=== PATIENT | female | born 1950 | race Caucasian/White ===

== ENCOUNTER 2017-03-12 07:11 | Outpatient (CLI) | payer OTHER ==
[~2017-03-12 07:11] MED LIST: AMARYL PO; ATORVASTATIN CA20 MG; ATORVASTATIN PO; GILTUSS TR TAB1 EACH PO; GLIPIZIDE ER2.5 MG PO; GLUMETZA1000 MG PO; JANUMET 50-1,1 UDTAB; JANUMET XR 50-1 EAC1 PO; MEDROLPACK PO; SYNTHROID75 MCG PO; VOLTAREM 50 MG PO; ZETIA10 MG PO; ZITHROMAX500 MG PO; ZYRTEC10 M3 PO; ZYRTEC10 MG PO
== END 2017-03-12 07:27 | disposition home or self-care (01) ==
LOC: LAB 07:11
DX: E03.8 Other specified hypothyroidism (principal); E11.65 Type 2 diabetes mellitus with hyperglycemia; E78.2 Mixed hyperlipidemia; I10 Essential (primary) hypertension

== ENCOUNTER 2017-08-05 16:02 | Emergency (ER) | payer OTHER ==
[~2017-08-05] VITALS: Ht 149.9 cm; Wt 50.8 kg
[2017-08-05] MEDS ORDERED: SKELAXIN800 MG PO (17:04)
[2017-08-05] MEDS ORDERED: CELEBREX100 MG PO (17:04)
== END 2017-08-05 17:51 | disposition home or self-care (01) ==
LOC: ER 16:02
DX: M54.5 Low back pain (principal)

== ENCOUNTER → 2017-09-09 | Outpatient (CLI) | payer OTHER ==
[~2017-09-09] MED LIST changes: +CELEBREX100 MG PO; +SKELAXIN800 MG PO
== END | disposition home or self-care (01) ==
LOC: NUCLEAR 07:00
DX: I20.0 Unstable angina (principal); I50.42 Chronic combined systolic (congestive) and diastolic (congestive) heart failure
CPT/HCPCS: J0153; A9500; 93017; 78452

== ENCOUNTER → 2017-11-25 07:07 | Outpatient (CLI) | payer OTHER | END | disposition home or self-care (01) | LOC: LAB 07:07 | DX: E03.8 Other specified hypothyroidism (principal); E78.2 Mixed hyperlipidemia; I10 Essential (primary) hypertension; D64.89 Other specified anemias; N39.0 Urinary tract infection, site not specified; R10.84 Generalized abdominal pain; E78.4 Other hyperlipidemia; E55.9 Vitamin D deficiency, unspecified; R80.8 Other proteinuria; R73.09 Other abnormal glucose; E11.8 Type 2 diabetes mellitus with unspecified complications; I11.9 Hypertensive heart disease without heart failure; I50.42 Chronic combined systolic (congestive) and diastolic (congestive) heart failure ==

== ENCOUNTER 2018-04-17 08:21 | Outpatient (CLI) | payer OTHER | END 2018-04-17 08:34 | disposition home or self-care (01) | LOC: LAB 08:21 | DX: E78.2 Mixed hyperlipidemia (principal); E03.8 Other specified hypothyroidism; E11.65 Type 2 diabetes mellitus with hyperglycemia; I10 Essential (primary) hypertension ==

== ENCOUNTER 2018-04-17 10:29 | Outpatient (CLI) | payer OTHER | END 2018-04-17 10:32 | disposition home or self-care (01) | LOC: SONOGRAMA 10:29 | DX: R31.9 Hematuria, unspecified (principal) ==

== ENCOUNTER 2018-05-28 06:42 | Emergency (ER) | payer OTHER ==
[~2018-05-28] VITALS: Ht 147.3 cm; Wt 53.5 kg
== END 2018-05-28 12:54 | disposition home or self-care (01) ==
LOC: ER 06:42
DX: K52.89 Other specified noninfective gastroenteritis and colitis (principal); B34.9 Viral infection, unspecified; J11.1 Influenza due to unidentified influenza virus with other respiratory manifestations

== ENCOUNTER → 2018-05-29 | Outpatient (CLI) | payer OTHER | END | disposition home or self-care (01) | LOC: NUCLEAR 05-28 07:00 | DX: R06.00 Dyspnea, unspecified (principal); I50.30 Unspecified diastolic (congestive) heart failure | CPT/HCPCS: 78452; 93017; A9500 ==

== ENCOUNTER 2018-12-09 07:03 | Outpatient (CLI) | payer OTHER | END 2018-12-09 07:43 | disposition home or self-care (01) | LOC: LAB 07:03 | DX: D64.89 Other specified anemias (principal); N39.0 Urinary tract infection, site not specified; R10.84 Generalized abdominal pain; I10 Essential (primary) hypertension; E11.29 Type 2 diabetes mellitus with other diabetic kidney complication; E03.8 Other specified hypothyroidism; Z12.11 Encounter for screening for malignant neoplasm of colon ==

== ENCOUNTER 2019-02-05 07:48 | Outpatient (CLI) | payer OTHER | END 2019-02-05 07:50 | disposition home or self-care (01) | LOC: RAD 07:48 | DX: J45.22 Mild intermittent asthma with status asthmaticus (principal) ==

== ENCOUNTER 2019-02-12 10:24 | Emergency (ER) | payer OTHER ==
[~2019-02-12] VITALS: Ht 149.9 cm; Wt 50.3 kg
[2019-02-12] MEDS ORDERED: CRESTOR10 MG PO (10:59)
== END 2019-02-12 13:25 | disposition home or self-care (01) ==
LOC: ER 10:24
DX: S71.122A Laceration with foreign body, left thigh, initial encounter (principal); S71.121A Laceration with foreign body, right thigh, initial encounter; W54.0XXA Bitten by dog, initial encounter; Y93.89 Activity, other specified; Y92.89 Other specified places as the place of occurrence of the external cause; Y99.8 Other external cause status

== ENCOUNTER 2019-03-17 08:10 | Outpatient (CLI) | payer OTHER ==
[~2019-03-17 08:10] MED LIST changes: +CRESTOR10 MG PO
== END 2019-03-17 08:15 | disposition home or self-care (01) ==
LOC: LAB 08:10
DX: D64.89 Other specified anemias (principal); E11.29 Type 2 diabetes mellitus with other diabetic kidney complication; E78.2 Mixed hyperlipidemia; E03.8 Other specified hypothyroidism; N39.0 Urinary tract infection, site not specified; Z12.11 Encounter for screening for malignant neoplasm of colon

== ENCOUNTER 2019-04-23 08:33 | Outpatient (CLI) | payer OTHER | END 2019-04-23 08:39 | disposition home or self-care (01) | LOC: LAB 08:33 | DX: E56.1 Deficiency of vitamin K (principal) ==

== ENCOUNTER 2019-04-23 09:50 | Outpatient (CLI) | payer OTHER | END 2019-04-23 16:37 | disposition home or self-care (01) | LOC: RAD 09:50 | DX: M54.5 Low back pain (principal) ==

== ENCOUNTER 2019-06-01 09:11 | Outpatient (CLI) | payer OTHER | END 2019-06-01 09:22 | disposition home or self-care (01) | LOC: NUCLEAR 09:11 | DX: M81.0 Age-related osteoporosis without current pathological fracture (principal) ==

== ENCOUNTER → 2019-08-10 07:26 | Outpatient (CLI) | payer OTHER | END | disposition home or self-care (01) | LOC: LAB 07:26 | PROVIDERS: ATTEND Internal Medicine Endocrinology, Diabetes & Metabolism | DX: E03.8 Other specified hypothyroidism (principal); M81.0 Age-related osteoporosis without current pathological fracture; E55.9 Vitamin D deficiency, unspecified; E78.2 Mixed hyperlipidemia; I10 Essential (primary) hypertension ==

== ENCOUNTER → 2020-03-08 08:16 | Outpatient (CLI) | payer OTHER | END | disposition home or self-care (01) | LOC: LAB 08:16 | PROVIDERS: ATTEND Internal Medicine Cardiovascular Disease | DX: D64.89 Other specified anemias (principal); N39.0 Urinary tract infection, site not specified; R10.84 Generalized abdominal pain; E03.8 Other specified hypothyroidism; E78.49 Other hyperlipidemia; E55.9 Vitamin D deficiency, unspecified; E11.9 Type 2 diabetes mellitus without complications; I10 Essential (primary) hypertension; Z13.6 Encounter for screening for cardiovascular disorders ==

== ENCOUNTER 2022-02-26 13:16 | Outpatient (CLI) | payer OTHER | END 2022-02-26 13:35 | disposition home or self-care (01) | LOC: LAB 13:16 | DX: Z20.828 Contact with and (suspected) exposure to other viral communicable diseases (principal) ==

== ENCOUNTER 2022-09-28 11:46 | Emergency (ER) | payer OTHER ==
[~2022-09-28] VITALS: Ht 147.3 cm; Wt 40.8 kg
[2022-09-28] MEDS ORDERED: SYNTHROID50 MCG PO (12:03)
[2022-09-28] MEDS ORDERED: JANUVIA25 MG PO (12:03)
[2022-09-28] MEDS ORDERED: CRESTOR40 MG PO (12:03)
== END 2022-09-28 17:20 | disposition home or self-care (01) ==
LOC: ER 11:46
DX: R60.0 Localized edema (principal); M79.672 Pain in left foot; E11.9 Type 2 diabetes mellitus without complications; Z79.84 Long term (current) use of oral hypoglycemic drugs; E03.9 Hypothyroidism, unspecified